=== PATIENT | male | born 1960 | race Asian ===

== ENCOUNTER → 2018-12-08 | Outpatient (CLI) | payer OTHER | LOC: RAD 12:28 | DX: M54.2 Cervicalgia (principal); M25.562 Pain in left knee; R51 Headache; V89.2XXA Person injured in unspecified motor-vehicle accident, traffic, initial encounter; Y93.89 Activity, other specified; Y92.89 Other specified places as the place of occurrence of the external cause; Y99.8 Other external cause status ==

== ENCOUNTER → 2021-06-10 | Outpatient (CLI) | payer OTHER ==
[2021-06-10 11:21] LABS: CREATININE 0.8 mg/dL (0.7-1.3)
== END ==
LOC: LAB 09:39 → CAT 11:29
PROVIDERS: ATTEND Family Medicine
DX: K76.0 Fatty (change of) liver, not elsewhere classified (principal); R10.11 Right upper quadrant pain

== ENCOUNTER → 2021-10-01 | Outpatient (CLI) | payer OTHER | LOC: NUC 07:32 | PROVIDERS: ATTEND Family Medicine | DX: R10.31 Right lower quadrant pain (principal); R10.9 Unspecified abdominal pain ==